=== PATIENT | male | born 1970 | race African-American/Black ===

== ENCOUNTER 2017-05-02 14:37 | Emergency (ER) | payer SELFPAY ==
[~2017-05-02] VITALS: Ht 182.9 cm; Wt 136.0 kg
[2017-05-02] MEDS ORDERED: SODIUM CHLORIDE 0.9% 1,000 ML IV ONE ×2 (17:20→18:36)
[2017-05-02 17:51] LABS: BASOPHILS % 0.9 % (0.0-2.0); EOSINOPHILS % 0.8 % (0.0-5.0); HEMOGLOBIN. 15.1 g/dL (14.0-18.0); LYMPHOCYTES % 36.6 % (20.0-50.0); MEAN CORPUSCULAR HEMOGLOBIN 29.8 pg (28.0-32.0); MEAN CORPUSCULAR VOLUME 87.1 fL (80.0-94.0); MEAN PLATELET VOLUME 7.9 fl (7.4-10.4); MONOCYTES % 7.6 % (2.0-8.0); NEUTROPHILS % 54.1 % (40.0-76.0); PLATELET 191 x1000/uL (130-400); RED BLOOD CELL COUNT 5.06 mill/uL (4.7-6.1); RED CELL DISTRIBUTION WIDTH 12.6 % (11.6-14.6)
[2017-05-02 17:53] LABS: CARBON DIOXIDE 20 mEq/L (21-32); CHLORIDE 101 mEq/L (98-107)
[2017-05-02] MEDS ORDERED: METFORMIN HCL 500MG TABLET PO ONE (19:45)
[2017-05-02 21:28] VITALS: BP 137/81
== END 2017-05-02 21:30 | disposition home or self-care (01) ==
LOC: ER 15:52
DX: R73.9 Hyperglycemia, unspecified (principal); I10 Essential (primary) hypertension; F17.200 Nicotine dependence, unspecified, uncomplicated
CPT/HCPCS: 36415; 80048; 82962; 85025; 96360; 96361; 99284; J7030